=== PATIENT | male | born 1955 | race Two or more races ===

== ENCOUNTER 2018-05-12 08:16 | Emergency (ER) | payer OTHER ==
[~2018-05-12] VITALS: Ht 177.8 cm; Wt 91.2 kg
[2018-05-12] MEDS ORDERED: KETOROLAC 30 MG/1 ML ONE (09:23)
[2018-05-12] MEDS ORDERED: KETOROLAC 30 MG/1 ML IM ONE (09:30)
[2018-05-12 11:02] VITALS: BP 133/75
== END 2018-05-12 11:04 | disposition home or self-care (01) ==
LOC: ED 09:46
DX: M77.9 Enthesopathy, unspecified (principal)
CPT/HCPCS: 73080; 73090; 93005; 93971; 96372; 99284; J1885

== ENCOUNTER 2018-06-19 05:04 | Emergency (ER) | payer BC, OTHER ==
[~2018-06-19] VITALS: Ht 177.8 cm; Wt 91.1 kg
[2018-06-19 05:07] VITALS: BP 146/77
== END 2018-06-19 05:39 | disposition home or self-care (01) ==
LOC: ED 05:33
DX: M77.12 Lateral epicondylitis, left elbow (principal); F17.200 Nicotine dependence, unspecified, uncomplicated
CPT/HCPCS: 99283